=== PATIENT | male | born 1995 | race Caucasian/White ===

== ENCOUNTER 2024-09-03 21:10 | Emergency (ER) | payer BC, SELFPAY ==
[2024-09-03] MEDS ORDERED: ONDANSETRON 4 MG/2 ML VIAL ONE (21:55)
[2024-09-03] MEDS ORDERED: NA CHLORIDE 0.9% 1,000 ML ONE (21:56)
[2024-09-03 22:38] LABS: Absolute Basophils 0.1 K/uL (0-0.5); Absolute Lymphocytes (CBC) 0.6 K/uL (0.7-4.9); Absolute Neutrophil 17.6 K/uL (1.8-8.0); Basophils % 0.3 % (0-1.3); Eosinophils % 0.1 % (0-4.4); Hematocrit 45.4 % (39.6-49.0); Hemoglobin 15.1 g/dL (13.6-17.9); Lymphocytes % 3.3 % (15.3-44.8); MCH 28.8 pg (27.0-35.0); MCHC 33.3 g/dL (32.0-36.0); MCV 86.6 fL (80-100); MPV 9.2 fL (7.6-11.3); Monocytes % 5.2 % (3.3-12.3); Neutrophils % 91.1 % (41.7-73.7); Platelets 245 thou/uL (152-406); RBC Red Blood Cell Count 5.25 M/uL (4.33-5.43)
[2024-09-03 22:39] LABS: SARS-CoV-2 Antigen CONTROL BLUE LINE VIS/BG OK; SARS-CoV-2 Antigen Rapid Res Negative (Negative)
[2024-09-03 22:55] LABS: Albumin 4.6 g/dL (3.4-5.0); Albumin/Globulin Ratio 1.4 (1.1-1.8); Anion Gap 13.1 mEq/L (5.0-15.0); Bilirubin Total 0.6 mg/dL (0.2-1.0); Globulin 3.3 g/dL (2.3-3.5); Potassium 4.1 mEq/L (3.5-5.1); Protein, Total 7.9 g/dL (6.4-8.2)
[2024-09-03 23:47] LABS: Band Neutrophils 31 % (0-1); Differential Total Cells Count 100; Lymphocytes 2 % (15-42); Monocytes 5 % (0-10); Segmented Neutrophils 62 % (40-80)
[2024-09-03 23:48] LABS: Blood Morphology Comment NOT SEEN (NOT SEEN); Platelet Estimate ADEQ
--- NOTE | 2024-09-03 23:53 | EDPHYS ---
Physician Documentation [facility] Name: Lex Vang Age: 29 yrs Sex: Male : 1995 Arrival Date: 09/03/2024 Time: 21:10 Bed 5 Private MD: ED Physician Benji Miller HPI: 09/03 23:49 This 29 yrs old Male presents to ER via Ambulatory with complaints of Flu Symptoms. kb 23:49 Pt is a 29 year old male who presents for nausea, vomiting and diarrhea that started kb today. States they had a potluck at work and he thinks he got food poisoning. Denies fever, abd pain. . Historical: - Allergies: 21:33 No Known Allergies; cm10 - Home Meds: 21:33 None [Active]; cm10 - PMHx: 21:33 None; cm10 - PSHx: 21:33 None; cm10 - Immunization history:: Adult Immunizations up to date. - Infectious Disease History:: Denies. - Social history:: Smoking status: Patient denies any tobacco usage or history of. ROS: 23:49 Constitutional: As per HPI kb Exam: 23:49 Head/Face: Normocephalic, atraumatic. ENT: Moist Mucous membranes Cardiovascular: kb Regular rate Respiratory: Respirations even and unlabored. No increased work of breathing. Talking in full sentences Abdomen/GI: Soft, non-tender. No distention Skin: Warm, dry with normal turgor. Normal color. MS/ Extremity: Pulses equal, no cyanosis. Neurovascular intact. Full, normal range of motion. Neuro: Awake and alert, GCS 15, oriented to person, place, time, and situation. 23:49 Constitutional: The patient appears alert, awake, uncomfortable, Vital Signs: 21:32 BP 109 / 71; Pulse 86; Resp 16; Temp 97.7(A); Pulse Ox 96% on R/A; Weight 58.97 kg; cm10 Height 5 ft. 6 in. ; Pain 7/10; 22:33 BP 119 / 69; Pulse 93; Resp 18; Pulse Ox 95% on R/A; br2 23:03 BP 117 / 70; Pulse 97; Resp 18 S; Pulse Ox 100% on R/A; br2 09/04 00:05 BP 122 / 78; Pulse 76; Resp 18 S; Temp 97.1(TE); Pulse Ox 99% on R/A; Pain 3/10; br2 09/03 21:32 Body Mass Index 20.98 (58.97 kg, 167.64 cm) cm10 09/03 21:32 Pain Scale: Adult cm10 09/04 00:05 Pain Scale: Adult br2 MDM: 09/03 21:18 Medical Screening Exam initiated kb 23:24 Data reviewed: vital signs, nurses notes. Refusal of service: The patient/guardian kb displays adequate decision making capability and despite a detailed discussion of alternatives, benefits, risks, and consequences refuses: CT Scan. ED course: Pt states he feels 1000x better after treatment and does not think the CT is needed. Pt educated on reasoning for CT due to WBC being >19. Pt states he still does not want CT at this time. 23:50 Differential diagnosis: gastroenteritis, bad food exposure, dehydration. Test kb considered but Not performed: CT: ct considered for elevated wbc and bandemia. Pt does not want CT scan. States he feels 1000x better and is tolerating po intake. Counseling: I had a detailed discussion with the patient and/or guardian regarding the historical points, exam findings, and any diagnostic results supporting the discharge/admit diagnosis, lab results, the need for outpatient follow up, a family practitioner, to return to the emergency department if symptoms worsen or persist or if there are any questions or concerns that arise at home. 09/03 21:34 Order name: CBC with Diff; Complete Time: 23:49 kb 09/03 21:34 Order name: CMP; Complete Time: 23:01 kb 09/03 21:34 Order name: Lipase; Complete Time: 23:01 kb 09/03 21:34 Order name: Flu; Complete Time: 22:46 kb 09/03 21:34 Order name: SARS-COV-2 Antigen Rapid; Complete Time: 22:39 kb 09/03 23:19 Order name: Manual Differential; Complete Time: 23:49 EDMS 09/03 21:34 Order name: IV Saline Lock; Complete Time: 22:09 kb 09/03 21:34 Order name: Labs collected and sent; Complete Time: 22:09 kb Administered Medications: 22:09 Drug: Ondansetron IVP 4 mg IVP once; over 2 minutes Route: IVP; Site: right antecubital;br2 22:45 Follow up: Response: No adverse reaction br2 22:09 Drug: NS 0.9% IV 1000 ml IV at 1 bolus Per protocol; to be given as a bolus over 60 br2 minutes Route: IV; Rate: 1 bolus; Site: right antecubital; 23:15 Follow up: Response: No adverse reaction; IV Status: Completed infusion; IV Intake: br2 1000ml 23:25 Not Given (Patient Refused; NOT NAUSEATEDd): ondansetron 4 mg IVP once; over 2 minutes br2 Disposition Summary: 09/03/24 23:52 Discharge Ordered Notes: Location: Home kb Condition: Stable kb Diagnosis - Elevated white blood cell count kb - Nausea with vomiting, unspecified kb - Diarrhea, unspecified kb Followup: kb - With: Emergency Department - When: As needed - Reason: Worsening of condition Followup: kb - With: Private Physician - When: 2 - 3 days - Reason: Recheck today's complaints, Continuance of care, Re-evaluation by your physician Discharge Instructions: - Discharge Summary Sheet kb - Food Choices to Help Relieve Diarrhea, Adult kb - Viral Gastroenteritis, Adult, [id number] kb - Nausea and Vomiting, Adult, [id number] kb - Diarrhea, Adult, [id number] kb Forms: - Medication Reconciliation Form kb - Antibiotic Education kb - Prescription Opioid Use kb - Patient Portal Instructions kb - Leadership Thank You Letter kb Prescriptions: - Zofran 4 mg Oral tablet - take 1 tablet ORAL route every 6 hours As needed; 12 tablet; Refills: 0, kb Product Selection Permitted Signatures: Dispatcher [employer] EDUT Ashley Kimble FNP-C MUSICAL INSTRUMENT SUPERVISOR-Vashti Faith, RN RN cm10 Janine Mock, RN RN br2 Corrections: (The following items were deleted from the chart) 21:35 21:35 CBC+H.LAB.BRZ ordered. EDMS EDMS 21:35 21:35 COMPREHENSIVE METABOLIC PANEL+C.LAB.BRZ ordered. EDMS EDMS 21:35 21:35 LIPASE+C.LAB.BRZ ordered. EDMS EDMS 21:35 21:35 Influenza Screen (A \T\ B)+BA.LAB.BRZ ordered. EDMS EDMS 21:35 21:35 SARS-COV-2 Antigen Rapid+I.LAB.BRZ ordered. EDMS EDMS 23:01 23:01 Abdomen Pelvis W Con+CT.RAD.BRZ ordered. EDMS EDMS
--- NOTE | 2024-09-03 23:53 | ER ---
Nurse's Notes [facility] Name: Lex Vang Age: 29 yrs Sex: Male : 1995 Arrival Date: 09/03/2024 Time: 21:10 Bed 5 Private MD: Diagnosis: Elevated white blood cell count;Nausea with vomiting, unspecified;Diarrhea, unspecified Presentation: 09/03 21:32 Chief complaint: Patient states: Fever, vomiting, diarrhea and body aches onset today. cm10 Coronavirus screen: Client denies travel out of the [place] in the last 14 days. Ebola Screen: Patient denies travel to an Ebola-affected area in the 21 days before illness onset. No symptoms or risks identified at this time. Initial Sepsis Screen: Does the patient meet any 2 criteria? No. Patient's initial sepsis screen is negative. Does the patient have a suspected source of infection? No. Patient's initial sepsis screen is negative. Risk Assessment: Do you want to hurt yourself or someone else? Patient reports no desire to harm self or others. Onset of symptoms was September 03, 2024. 21:32 Method Of Arrival: Ambulatory cm10 21:32 Acuity: NURIA 3 cm10 Triage Assessment: 21:33 General: Appears in no apparent distress. uncomfortable, Behavior is calm, cooperative. cm10 Neuro: No deficits noted. Level of Consciousness is awake, alert, obeys commands, Oriented to person, place, time, situation, Appropriate for age. Respiratory: No deficits noted. Airway is patent Respiratory effort is even, unlabored, Respiratory pattern is regular, symmetrical. Historical: - Allergies: 21:33 No Known Allergies; cm10 - Home Meds: 21:33 None [Active]; cm10 - PMHx: 21:33 None; cm10 - PSHx: 21:33 None; cm10 - Immunization history:: Adult Immunizations up to date. - Infectious Disease History:: Denies. - Social history:: Smoking status: Patient denies any tobacco usage or history of. Screenin:10 [facility] ED Fall Risk Assessment (Adult) History of falling in the last 3 months, br2 including since admission No falls in past 3 months (0 pts) Confusion or Disorientation No (0 pts) Intoxicated or Sedated No (0 pts) Impaired Gait No (0 pts) Mobility Assist Device Used No (0 pt) Altered Elimination No (0 pt) Score/Fall Risk Level 0 - 2 = Low Risk Oriented to surroundings. Abuse screen: Denies threats or abuse. Denies injuries from another. Nutritional screening: No deficits noted. Tuberculosis screening: No symptoms or risk factors identified. Assessment: 22:10 Reassessment: Patient and/or family updated on plan of care and expected duration. Pain br2 level reassessed. Patient is alert, oriented x 3, equal unlabored respirations, skin warm/dry/pink. General: Appears uncomfortable, slender, Behavior is calm, cooperative. Pain: Complains of pain in umbilical area, suprapubic area, right upper quadrant, left upper quadrant, right lower quadrant and left lower quadrant Pain does not radiate. Pain currently is 7 out of 10 on a pain scale. GI: Abdomen is flat, Pt is actively vomiting bile, Bowel sounds present X 4 quads. present in right upper quadrant, left upper quadrant, right lower quadrant and left lower quadrant Abd is soft Reports diarrhea, nausea, vomiting. 09/04 00:05 Reassessment: Patient and/or family updated on plan of care and expected duration. Pain br2 level reassessed. Patient is alert, oriented x 3, equal unlabored respirations, skin warm/dry/pink. Patient states feeling better. Patient states symptoms have improved. Pain: Pain currently is 4 out of 10 on a pain scale. Vital Signs: 09/03 21:32 BP 109 / 71; Pulse 86; Resp 16; Temp 97.7(A); Pulse Ox 96% on R/A; Weight 58.97 kg; cm10 Height 5 ft. 6 in. ; Pain 7/10; 22:33 BP 119 / 69; Pulse 93; Resp 18; Pulse Ox 95% on R/A; br2 23:03 BP 117 / 70; Pulse 97; Resp 18 S; Pulse Ox 100% on R/A; br2 09/04 00:05 BP 122 / 78; Pulse 76; Resp 18 S; Temp 97.1(TE); Pulse Ox 99% on R/A; Pain 3/10; br2 09/03 21:32 Body Mass Index 20.98 (58.97 kg, 167.64 cm) cm10 09/03 21:32 Pain Scale: Adult cm10 09/04 00:05 Pain Scale: Adult br2 ED Course: 09/03 21:12 Patient arrived in ED. ra3 21:18 Ashley Kimble FNP-C [facility]. kb 21:18 Benji Miller MD is Attending Physician. kb 21:33 Triage completed. cm10 21:33 Arm band placed on left wrist. Patient placed in waiting room. cm10 21:51 Janine Mock, RN is Primary Nurse. br2 22:09 SARS-COV-2 Antigen Rapid Sent. br2 22:09 Flu Sent. br2 22:09 CBC with Diff Sent. br2 22:09 CMP Sent. br2 22:09 Lipase Sent. br2 22:09 Inserted saline lock: 16 gauge 20 gauge in right antecubital area, using aseptic br2 technique. Blood collected. Flushed with 10 mL NS. 22:10 Patient has correct armband on for positive identification. Bed in low position. Call br2 light in reach. Side rails up X 1. Provided Education on: plan of care. 09/04 00:07 No provider procedures requiring assistance completed. IV discontinued, intact, br2 bleeding controlled, No redness/swelling at site. Pressure dressing applied. Administered Medications: 09/03 22:09 Drug: Ondansetron IVP 4 mg IVP once; over 2 minutes Route: IVP; Site: right antecubital;br2 22:45 Follow up: Response: No adverse reaction br2 22:09 Drug: NS 0.9% IV 1000 ml IV at 1 bolus Per protocol; to be given as a bolus over 60 br2 minutes Route: IV; Rate: 1 bolus; Site: right antecubital; 23:15 Follow up: Response: No adverse reaction; IV Status: Completed infusion; IV Intake: br2 1000ml 23:25 Not Given (Patient Refused; NOT NAUSEATEDd): ondansetron 4 mg IVP once; over 2 minutes br2 Medication: 09/04 00:05 VIS not applicable for this client. br2 Intake: 09/03 23:15 IV: 1000ml; Total: 1000ml. br2 Outcome: 23:52 Discharge ordered by . kiara 09/04 00:07 Discharged to home ambulatory, br2 Condition: good Discharge instructions given to patient, Instructed on discharge instructions, medication usage, Demonstrated understanding of instructions, follow-up care, medications, Prescriptions given X 1, 00:09 Patient left the ED. br2 Signatures: Ashley Kimble FNP-C FNP-Ckb Martinez, Clarissa RN RN cm10 Lashay Zamora ra3 Janine Mock RN RN br2
[2024-09-04 07:40] VITALS: BP 122/78; TEMP 97.1; O2SAT 99
== END 2024-09-04 00:09 | disposition home or self-care (01) ==
LOC: ER 21:10
DX: D72.829 Elevated white blood cell count, unspecified (principal); R11.2 Nausea with vomiting, unspecified; R19.7 Diarrhea, unspecified; Z11.52 Encounter for screening for COVID-19
CPT/HCPCS: 36415; 80053; 83690; 85025; 87804; 87811; 96361; 96374; 99284; J2405; J7030